=== PATIENT | female | born 1945 | race Caucasian/White ===

== ENCOUNTER 2023-02-12 08:53 | Outpatient (CLI) | payer MEDICARE, SELFPAY ==
--- NOTE | ~2023-02-12 | US_ITS ---
EXAMINATION: US carotid duplex BI DATE: 02/12/2023 10:48 INDICATION: Encephalopathy with memory impairment. Carotid atherosclerosis. Hypertension an aortic va lve disease. TECHNIQUE: Grayscale, color Doppler, and pulsed Doppler images of the cervical carotid arteries were obtained. The degree of vessel stenosis is placed in one of the following categories: normal, <50%, 5 0-69%, >=70% but less than near-occlusion, near-occlusion, or total occlusion. Note that percent sten osis relative to normal distal artery lumen diameter is indirectly measured from velocity measurement s as described by Charanjit, et al. Radiology 2003; 229:340-346. COMPARISON: None. FINDINGS: RIGHT: The right common carotid artery (CCA) peak systolic velocity (PSV) is 59 cm/s. The right internal car otid artery (ICA) PSV is 72 cm/s. The right ICA end-diastolic velocity (EDV) is 15 cm/s. The right IC A/CCA PSV ratio is 1.2. Grayscale and color Doppler images yield an estimate of <50% diameter reducti on from plaque in the ICA. The external carotid artery (ECA) PSV is 81 cm/s. There is antegrade flow in the right vertebral artery. LEFT: The left CCA PSV is 78 cm/s. The left ICA PSV is 67 cm/s. The left ICA EDV is 18 cm/s. The left ICA/C CA PSV ratio is 0.9. Grayscale and color Doppler images yield an estimate of <50% diameter reduction from plaque in the ICA. The ECA PSV is 79 cm/s. There is antegrade flow in the left vertebral artery. IMPRESSION: 1. <50% stenosis in the right internal carotid artery. 2. <50% stenosis in the left internal carotid artery. Reviewed, dictated and finalized at location A. WORKER
--- NOTE | ~2023-02-12 | CT_ITS ---
CT Scan of the Chest without Contrast: Clinical Indication: Lung cancer screening, personal history of nicotine dependence Technique: Contiguous sections were acquired throughout the chest without intravenous contrast. Dose reduction technique was used on this scan by utilizing automated exposure control and iterative recon struction technique. The dose-length product (DLP) was 61.43 mGy-cm. Findings: There is no evidence of any significant mediastinal, hilar or axillary lymphadenopathy. Calcified AP window lymph nodes are present. There are atherosclerotic calcifications of the aorta and coronary ar teries. There is no evidence of pleural or pericardial effusion. Calcified left apical granuloma noted. No other pulmonary nodules identified. Images through the upper abdomen reveal no abnormalities. Impression: Lung RADS 2: Benign appearance. 12 month follow-up screening CT advised. Reviewed, dictated and finalized at [facility]. DISPATCHER Impression: Lung RADS 2: Benign appearance. 12 month follow-up screening CT advised.
--- NOTE | 2023-02-12 09:11 | ECHO_ITS ---
Patient Info Name: Daniella Daley Age: 77 years : 1945 Gender: Female Ht: 64 in Wt: 120 lbs BSA: 1.57 m2 HR: 78 bpm BP: 192 / 101 mmHg Heart Rhythm: Sinus Rhythm Technical Quality: Good Exam Date: 02/12/2023 10:14 AM Exam Location: Echo Lab Patient Status: Outpatient Admit Date: 02/12/2023 Staff Ordering Physician: Horacio Mcarthur MD Home Visit Field Care Manager: Zaid Woods RDCS Attending Provider: Horacio Mcarthur MD Exam Type: CA echo doppler color flow Study Info Indications - HTN, AORTIC VALVE DISEASE Complete two-dimensional, color flow and Doppler transthoracic echocardiogram is performed. Summary 1. Complete two-dimensional, color flow and Doppler transthoracic echocardiogram is performed. 2. Left ventricular chamber dimension is normal. 3. Left ventricular systolic function is normal, estimated at 60-65%. 4. There is mild concentric increased left ventricular wall thickness. 5. The left ventricular diastolic function is grade I diastolic dysfunction. 6. E/e' 9 is minimally elevated. 7. There is moderate aortic valve sclerosis. 8. There is mild aortic valve stenosis with a peak velocity of 188 cm/s, mean gradient of 8 mmHg, and aortic valve area of 1.8 cm2. 9. There is mild aortic valve regurgitation. 10. There is trace mitral valve regurgitation. 11. There is trace tricuspid valve regurgitation. 12. No pulmonary hypertension, estimated pulmonary arterial systolic pressure is 25 mmHg. Left Ventricle E/e' 9 is minimally elevated. Left ventricular chamber dimension is normal. Left ventricular systolic function is normal, estimated at 60-65%. There is mild concentric increased left ventricular wall thickness. The left ventricular diastolic function is grade I diastolic dysfunction. Right Ventricle Right ventricular systolic function is normal and with normal TAPSE 2.5 cm. Right ventricular chamber dimension is normal. Left Atria Left atrial chamber dimension is normal. Right Atria Right atrial chamber dimension is normal. Aortic Valve The aortic valve is probable trileaflet. There is moderate aortic valve sclerosis. There is mild aortic valve stenosis with a peak velocity of 188 cm/s, mean gradient of 8 mmHg, and aortic valve area of 1.8 cm2. There is mild aortic valve regurgitation. Pulmonic Valve There is no pulmonic regurgitation. Mitral Valve There is no mitral valve stenosis. There is trace mitral valve regurgitation. Tricuspid Valve There is trace tricuspid valve regurgitation. No pulmonary hypertension, estimated pulmonary arterial systolic pressure is 25 mmHg. Pericardium/Pleural There is no pericardial effusion. Inferior Vena Cava Normal inferior vena cava with >50% collapse upon inspiration consistent with normal right atrial pressure, 5 mmHg. Aorta The aortic root size at the sinus of Valsalva is normal. Left Ventricular Outflow Tract Name Value Normal LVOT 2D LVOT Diameter 1.9 cm LVOT Doppler LVOT Peak Velocity 115 cm/s LVOT Peak Gradient 5 mmHg LVOT Mean Gradient 3 mmHg LVOT VTI 29 cm LVOT VTI/AV VTI Ratio 0.7
== END 2023-02-12 08:54 | disposition home or self-care (01) ==
LOC: CHSIMG 08:59
PROVIDERS: PCP Internal Medicine; Visit Provider Internal Medicine
DX: F03.90 Unspecified dementia, unspecified severity, without behavioral disturbance, psychotic disturbance, mood disturbance, and anxiety (principal); I10 Essential (primary) hypertension; I35.9 Nonrheumatic aortic valve disorder, unspecified; M81.0 Age-related osteoporosis without current pathological fracture; Z12.2 Encounter for screening for malignant neoplasm of respiratory organs; Z87.891 Personal history of nicotine dependence; I65.23 Occlusion and stenosis of bilateral carotid arteries; I35.1 Nonrheumatic aortic (valve) insufficiency
CPT/HCPCS: 71271; 93306; 93880

== ENCOUNTER 2023-02-22 09:24 | Outpatient (CLI) | payer MEDICARE, SELFPAY ==
--- NOTE | ~2023-02-22 | MR_ITS ---
EXAMINATION: MR brain/brain stem wo con DATE: 02/22/2023 10:27 INDICATION: Dementia. Memory loss. Osteoporosis. TECHNIQUE: Magnetic resonance imaging (MRI) of the brain and brainstem was performed without intraven ous contrast. COMPARISON: None. FINDINGS: There is no intracranial hemorrhage, acute infarction, or abnormal intracranial mass lesion . There are scattered areas of nonspecific increased T2-weighted signal intensity in the cerebral whi te matter and puneet. The ventricles are normal in size. The paranasal sinuses are clear. There are lik jorden changes of ocular lens replacement surgeries. There are small mastoid effusions. IMPRESSION: 1. Moderate nonspecific cerebral white matter disease and pontine disease, which likely represents ch ronic small vessel ischemic disease. Reviewed, dictated and finalized at location A. ER IMPRESSION: 1. Moderate nonspecific cerebral white matter disease and pontine disease, whic h likely represents chronic small vessel ischemic disease.
--- NOTE | ~2023-02-22 | DEXA_ITS ---
Bone Density Report Name: SEGUNDO ORO Age: 77 Sex: Female Ethnicity: White Date of : 1945 Indication: postmenopausal; screening for osteoporosis; prior fracture; Referring Provider: Horacio Mcarthur Study: Bone densitometry was performed. Exam Date: February 22, 2023 Accession number: [id number] Bone Density: Region BMD T-score Z-score Classification AP Spine(L2, L3, L4) 1.001 -0.7 1.9 Normal Femoral Neck (Left) 0.632 -2.0 0.2 Osteopenia Total Hip (Left) 0.741 -1.6 0.3 Osteopenia Femoral Neck (Right) 0.547 -2.7 -0.5 Osteoporosis Total Hip (Right) 0.697 -2.0 -0.1 Osteopenia Femoral Neck Mean 0.590 -2.3 -0.1 Osteopenia Total Hip Mean 0.719 -1.8 0.1 Osteopenia World Health Organization criteria for BMD impression classify patients as: Normal (T-score at or above -1.0), Osteopenia (T-score between -1.0 and -2.5), or Osteoporosis (T-score at or below -2.5). 10-year Fracture Risk: FRAX not reported because: Some T-score for Spine Total or Hip Total or Femoral Neck at or below -2.5 Clinical Information Provided by Patient: Has had a low trauma fracture Smokes Patient maximum height was 63 Menopause Age: 50 No regular weight bearing exercise Drinks caffeinated beverages Onset of menses at age 12 Number of children 1 Impression: The patient has established osteoporosis, based on the Right Femoral Neck T-score and the existence of a prior fracture. The patient has risk factors, including: smoking, previous fracture. Discussion: HIGH RISK OF FRACTURE. BONE DENSITY IS UNDESIRABLY LOW AT ONE OR MORE SKELETAL SITES, CONSISTENT WITH POSTMENOPAUSAL OSTEOPOROSIS. This patient's lowest T-score, in a patient who has previously fractured, meets the World Health Organization's (WHO) criteria for severe osteoporosis. In untreated patients, the risk of osteoporotic fracture increases approximately two-fold for each 1.0 SD decrease in T-score. Low bone density is not the only risk factor for fracture; also consider factors such as patient's age, frailty or poor health, risk of falling, risk of injury, previous osteoporotic fracture, family history of osteoporosis, cigarette smoking, low body weight, etc. Not everyone with low bone mineral density has osteoporosis; osteomalacia and other metabolic bone disorders should also be considered. Patients who have osteoporosis should be evaluated for specific diseases and conditions (secondary causes) that may cause or contribute to bone loss. The [place] [employer] Endocrinologists (AACE) and National Osteoporosis Foundation (NOF) recommend pharmacologic intervention for all postmenopausal women whose T-score is in this range. The patient should follow a healthful lifestyle (good nutrition with adequate calcium and vitamin D, and appropriate weight-bearing exercise). Follow-Up: Consider a repeat BMD and Vertebral Fracture
== END 2023-02-22 09:25 | disposition home or self-care (01) ==
PROVIDERS: PCP Internal Medicine; Visit Provider Internal Medicine
DX: F03.90 Unspecified dementia, unspecified severity, without behavioral disturbance, psychotic disturbance, mood disturbance, and anxiety (principal); I35.9 Nonrheumatic aortic valve disorder, unspecified; M81.0 Age-related osteoporosis without current pathological fracture; R90.82 White matter disease, unspecified; G93.89 Other specified disorders of brain; M85.89 Other specified disorders of bone density and structure, multiple sites
CPT/HCPCS: 70551; 77080

== ENCOUNTER 2023-05-07 08:39 | Outpatient (CLI) | payer MEDICARE, SELFPAY ==
--- NOTE | ~2023-05-07 | CT_ITS ---
CT of the Abdomen and Pelvis: Indication: Abnormal bowel movement Technique: 2.5 mm axial scans were obtained through the abdomen and pelvis following intravenous adm inistration of 100 cc of Omnipaque 350. Dose reduction technique was used on this scan by utilizing a utomated exposure control and iterative reconstruction technique. The dose-length product (DLP) was 1 85.42 mGy-cm. COMPARISON: 02/12/2023 Findings: Scans through the lung bases are unremarkable. The liver, spleen, pancreas, right adrenal and, and kidneys are within normal limits. Cholecystectomy clips are present. 1.7 cm left adrenal nodule stable from prior CT. There are atherosclerotic calcif ications of the aorta. No lymphadenopathy. Questionable mild wall thickening of the distal rectum. No bowel obstruction evident. No abscess or f ree air. Images through the pelvis were performed. Urinary bladder unremarkable. No pelvic mass seen. No ascit es. Impression: Questionable mild wall thickening of the distal rectum. Correlate for proctitis. 1.7 cm left adrenal nodule, stable since 02/12/2023, indeterminate, but most likely adenoma. Reviewed, dictated and finalized at location . Impression: Questionable mild wall thickening of the distal rectum. Correlate for proctitis . 1.7 cm left adrenal nodule, stable since 02/12/2023, indeterminate, but most li laureen adenoma.
[2023-05-07 09:09] LABS: Estimated Glomerular Filt Rate 58
== END 2023-05-07 08:40 | disposition home or self-care (01) ==
LOC: CHSIMG 08:41
PROVIDERS: PCP Internal Medicine; Visit Provider Internal Medicine
DX: R19.7 Diarrhea, unspecified (principal); R63.4 Abnormal weight loss; E27.9 Disorder of adrenal gland, unspecified
CPT/HCPCS: 74177; Q9967

== ENCOUNTER 2024-10-17 10:49 | Outpatient (CLI) | payer MEDICARE, SELFPAY ==
--- OUTSIDE RECORDS SUMMARY | 2024-07-24 08:00 | XMS_ITS ---
Author Organization [facility] Address [address] [place], [place] [id number] Care Team Providers Care Chief Controller Center Name Role Phone KALI NOEL Unavailable [phone] unknown, unknown Unavailable Unavailable Allergies No Known Allergies REASON FOR VISIT GC Medications Medication SIG (Take, Route, Frequency, Duration) Notes Start Date End Date Status Lisinopril 10 MG TAKE 1 TABLET BY CORNELIUS TH EVERY DAY Oral; Duration: 90 Days Active Levothyroxine Sodium 100 MCG TAKE 1 TABL ET BY MOUTH EVERY DAY Oral; Duration: 90 Days Active Encounters Encounter Location Date Provider Diagnosis [address] [id number] 07/24/2024 NOEL BASS Pain in right foot M79.671 ; Tinea unguium B35.1 ; Pain in left foot M79.672 and Atherosclerosis of [place] arteries of extremities with intermittent claudication, bilateral legs I70.213 Assessments Encounter Date Diagnosis (ICD Code) Assessment Notes Treatment Notes Treatment Clinical Notes Section Notes 07/24/2024 Pain in right foot (ICD-10 - M79.671) 07/24/2024 Tinea unguium (ICD-10 - B35.1) 07/24/2024 Pain in left foot (ICD-10 - M79.672) 07/24/2024 Atherosclerosis of [place] arteries of extremities with intermittent claudication, bilateral legs (ICD-10 - I70.213) Plan Of Treatment No Information Progress Notes * EDI AngelaB:1945 ( 79 yo F)Acc No.[id number]:07/24/2024 Progress Notes Patient: Daniella REAVES Provider: Isabella BASS :1945 A ge:78 Y S ex:Female Date:07/24/2024 [facility] Subjective: * Chief Complaints: * 1 . GC. * HPI: H PI: New Complaint P atient presents for a new patient consultation. Patient presents for a nail trimming. Patient denies being diabetic, denies taking prescription bloodthinners, and denies taking a daily aspirin. MA LB. * ROS: G eneral / Constitutional: Patient denies f atigue, chills, fever. M usculoskeletal: Patient denies n euroma, weakness, broken ankle. P eripheral Vascular: Patient denies b lood clots in legs. S kin: Patient complains of f ungal nails, discoloration, ingrown nails. N eurologic: Patient denies g ait abnormality. * Medical History: A rthritis, Thyroid Disease, Heart/disease/failure, Psychiatric Disorder. * Family History: N o Family History documented.. * Social History: D rugs/Alcohol: D o you drink alcohol?: No. * Medications: T aking Levothyroxine Sodium 100 MCG Tablet TAKE 1 TABLET BY MOUTH EVERY DAY Oral , Taking Lisinopril 10 MG Tablet TAKE 1 TABLET BY MOUTH EVERY DAY Oral , Medication List reviewed and reconciled with the patient * Allergies: N .K.D.A. Objective: * Vitals: * Examination: C onstitutional: Constitutional T he patient is awake, alert, well developed, well groomed and well nourished.. D ermatologic: Nail pathology: N ails 1-5 bilateral are elongated, thick, discolored, and dystrophic with subungual debris. They are painful to palpation. Ingrown Nail N ail is incurvated on the b ilateral border of the right and left great toenail. M usculoskeletal: Muscle Strength M uscle strength is 5/5 in regards to dorsiflexion, plantarflexion, inversion, and eversion in bilateral lower extremities.. ? N eurologic: Gross sensation G ross sensation is intact to light touch.? V ascular: Dorsalis pedis pulse: b ilateral, 1/4. Posterior tibial pulse: b ilaterally, 2/4. Capillary refill: b ilaterally, less than 3 seconds. ? Assessment: * Assessment: 1. T ortiza ungkarmaum - B35.1 (Primary) 2 . P ain in right foot - M79.671 ? 3 . P ain in left foot - M79.672 4 . A therosclerosis of [place] arteries of extremities with intermittent claudication, bilateral legs - I70.213 Plan: * Treatment: * Immunizations: Immunization record has been reviewed and updated. * Preventive Medicine: Counseling: S moking: P atient counselled on the dangers of tobacco use and urged to quit. 0 07/24/2024. * Billing Information: * Visit Code: 45649 Office Visit, New Pt., Level 3. * Procedure Codes: * Electronic signature of KIT BASS DPM on 10/17/2024 at 10:53 AM CDT Sign off status: Pending * Provider: Isabella BASS Date: 0 07/24/2024 Generated for Zach stoddard/Gayathri/Addison on: 0 10/17/2024 10:53 AM CDT History and Physical Notes * HPI (History of Present Illness) Category Sub-Category Detail Notes Category Not es HPI New Complaint Patient presents for a new patient consultation. Patient presents for a nail trimming. Patient denies being diabetic, denies taking prescription bloodthinners, and denies taking a daily aspirin. MA LB Examination Category Sub-Category Detail Notes Category Not es Constitutional Constitutional The patient is a wake, alert, well developed, well groomed and well nourished. Dermatologic Nail pathology: Nails 1-5 bilate ral are elongated, thick, discolored, and dystrophic with subungual debris. They are painful to palpation Ingrown Nail Nail is incurvated o n the bilateral border of the right and left great toenail Musculoskeletal Muscle Strength Muscle strength is 5/5 in regards to dorsiflexion, plantarflexion, inversion, and eversion in bilateral lower extremities. Neurologic Gross sensation Gross sensation is intact to light touch Vascular Dorsalis pedis pulse: bilateral, 1/4 Posterior tibial pulse: bilaterally, 2/4 Capillary refill: bilaterally, less th an 3 seconds
--- OUTSIDE RECORDS SUMMARY | 2024-10-02 10:10 | XMS_ITS ---
Author Organization [facility] Address [address] [place], [place] [id number] Care Team Providers Care Telecine Operator Name Role Phone NOEL BASS Unavailable [phone] unknown, unknown Unavailable Unavailable REASON FOR VISIT *General care Encounters Encounter Location Date Provider Diagnosis [address] [id number] 10/02/2024 NOEL BASS Plan Of Treatment No Information Progress Notes * Ysabel OROaDOB:1945 ( 79 yo F)Acc No.[id number]:10/02/2024 Patient: Daniella REAVES Provider: Isabella BASS :1945 A ge:78 Y S ex:Female Date:10/02/2024 Address:[address] [facility] Subjective: * Chief Complaints: * 1 . *General care. * Medical History: Objective: * Vitals: Assessment: Plan: * Treatment: * Billing Information: * Visit Code: * Procedure Codes: * Electronic signature of KIT BASS DPM on 10/17/2024 at 10:53 AM CDT Sign off status: Pending * Provider: Isabella BASS Date: 10/02/2024 Generated for Zach stoddard/Gayathri/eTransmitting on: 0 10/17/2024 10:53 AM CDT
--- NOTE | ~2024-10-17 | XR_ITS ---
XR knee RT 3V 10/17/2024 11:05 Indication: Chronic right knee pain Procedure: 3 views right knee Comparison: Comparison to multiple prior studies sequentially, with oldest reviewed study dated 09/05/2012. Findings: There is severe tricompartment osteoarthritis of the right knee. No significant joint effusion. No fracture, subluxation or dislocation. No significant joint effusion. Impression: 1: Severe tricompartment osteoarthritis of the right knee. Reviewed, dictated and finalized at location O. Impression: 1: Severe tricompartment osteoarthritis of the right knee.
--- OUTSIDE RECORDS SUMMARY | 2024-10-17 10:54 | XMS_ITS | Patient Health Record ---
Author Organization [facility] Address [address] [place], [place] [address] Care Team Providers Care Material Engineer Name Role Phone NOEL BASS Unavailable [phone] unknown, unknown Unavailable Unavailable Allergies No Known Allergies Reason For Referral No Information Medications Medication SIG (Take, Route, Frequency, Duration) Notes Start Date End Date Status Lisinopril 10 MG TAKE 1 TABLET BY CORNELIUS TH EVERY DAY Oral; Duration: 90 Days Active Levothyroxine Sodium 100 MCG TAKE 1 TABL ET BY MOUTH EVERY DAY Oral; Duration: 90 Days Active Encounters Encounter Location Date Provider Diagnosis [address] [id number] 07/24/2024 NOEL KALI Pain in right foot M79.671 ; Tinea unguium B35.1 ; Pain in left foot M79.672 and Atherosclerosis of [place] arteries of extremities with intermittent claudication, bilateral legs I70.213 Assessments Encounter Date Diagnosis (ICD Code) Assessment Notes Treatment Notes Treatment Clinical Notes Section Notes 07/24/2024 Tinea unguium (ICD-10 - B35.1) 07/24/2024 Pain in right foot (ICD-10 - M79.671) 07/24/2024 Pain in left foot (ICD-10 - M79.672) 07/24/2024 Atherosclerosis of [place] arteries of extremities with intermittent claudication, bilateral legs (ICD-10 - I70.213) Plan Of Treatment No Information Insurance Providers Payer Name Payer Address Payer Phone Subscriber Number Group Number Insured Name Patient Relationship to Insured Coverage Start Date Coverage End Date Medicare Part B [facility] [address] [phone] [id number] Daniella Daley Self - patient is the insured [facility] [address] [address] [place] [phone] [id number] Daniella Daley Self - patient is the insured 0 Medical (General) History Medical History History ICD Code Arthritis Thyroid Disease heart/disease/failure Psychiatric Disorder
== END 2024-10-17 10:50 | disposition home or self-care (01) ==
LOC: CHSIMG 10:51
PROVIDERS: PCP Internal Medicine; Visit Provider Internal Medicine
DX: M25.561 Pain in right knee (principal); M17.11 Unilateral primary osteoarthritis, right knee
CPT/HCPCS: 73562